=== PATIENT | female | born 1960 | race Caucasian/White ===

== ENCOUNTER 2018-07-12 11:54 | Emergency (ER) | payer SELFPAY ==
--- NOTE | 2018-07-12 13:07 | RAD ---
RIGHT SHOULDER 3 VIEWS: HISTORY: Pain. Injury. COMPARISON: None. FINDINGS: There are degenerative changes of the AC joint space. Glenohumeral joint space is preserved. No fra cture or dislocation. Sclerosis of the greater tuberosity suggesting degenerative change. Visualize d right ribs are intact. IMPRESSION: No fracture or dislocation. POS: [facility]
== END 2018-07-12 18:42 | disposition home or self-care (01) ==
LOC: ERS 11:54
DX: M25.511 Pain in right shoulder (principal); F31.9 Bipolar disorder, unspecified; F17.210 Nicotine dependence, cigarettes, uncomplicated

== ENCOUNTER 2019-06-20 02:41 | Inpatient (IN) | payer SELFPAY ==
[2019-06-20] MEDS ORDERED: Rocuronium Bromide 10 MG/ML (10ML VIAL) ONE (02:47)
[2019-06-20] MEDS ORDERED: Fentanyl 100 MCG/2 ML VIAL ONE (02:59)
[2019-06-20 03:15] LABS: BHCG - Serum Negative (NEGATIVE); Pregs Control Background? CLEAR/WHITE (CLR/WHITE); Pregs Control Bar Appear? YES (CONTROL BAR)
[2019-06-20] MEDS ORDERED: Activated Charcoal/Sorbitol 25 GM/120 ML TUBE ONE (03:18)
[2019-06-20 03:19] LABS: Hemoglobin 18.5 g/dL (12.0-16.0); Mean Corpuscular HGB CONC 35.4 g/dL (32.0-36.0); Mean Corpuscular Hemoglobin 32.3 pg (27.0-31.0); Mean Corpuscular Volume 91.3 fL (78.0-98.0); Mean Platelet Volume 9.4 fL (7.4-10.4); Platelet Count 245 thou/uL (130-400); Red Blood Cell (RBC) Count 5.73 mill/uL (4.20-5.40); White Blood Cell (WBC) Count 7.8 thou/uL (4.8-10.8)
[2019-06-20 03:27] LABS: Actual Bicarbonate (HCO3a) 18.4 mEq/L (22-28); Analyzer IN Cardio ER; Base Excess (BEa) -6.4 mEq/L (-2.0 to +3.0); Carboxyhemoglobin (COHb) 9.7 gm% (0.0-3.0); Hemoglobin (Hb) 16.1 g/dL (12.0-16.0); O2 Tension (PaO2) 182.1 mmHg (80.0-100.0); Potassium - ABG Lab 3.07 mmol/L (3.70-5.30); pH, Arterial 7.34 (7.35-7.45)
[2019-06-20 03:30] LABS: ALT (SGPT) 14 U/L (8-55); AST (SGOT) 23 U/L (5-34); Albumin 5.2 g/dL (3.5-5.0); Alcohol 206 mg/dL (Less than 10); Alkaline Phosphatase 96 U/L (40-150); Anion Gap 19 mmol/L (10-20); BUN (Urea Nitrogen) 8 mg/dL (9.8-20.1); Bilirubin, Total 0.5 mg/dL (0.2-1.2); Calc. Creatinine Clearance 0 mL/min (70-130); Calcium 9.8 mg/dL (7.8-10.44); Carbon Dioxide 21 mmol/L (22-29); Chloride 106 mmol/L (98-107); Estimated GFR-MDRD 86; Globulin 3.2 g/dL (2.4-3.5); Glucose 66 mg/dL (70-105); Potassium 3.5 mmol/L (3.5-5.1); Protein, Total 8.4 g/dL (6.0-8.3); Salicylate Less than 8.0 mg/dL (15.0-30.0); Sodium 142 mmol/L (136-145)
[2019-06-20 03:32] LABS: Band 2 % (5-11); Eosinophils 2 % (0-10); Lymphocytes 38 % (21-51); MDiff Complete? YES; Monocytes 8 % (0-10); Neutrophil 50 % (42-75); RBC Morphology Normal
[2019-06-20] MEDS ORDERED: Dextrose 50% Abboject 50 ML SYRINGE ONE (03:34)
[2019-06-20 03:36] LABS: Bacteria/HPF None Seen HPF (None Seen); Bilirubin Negative (Negative); Blood, Urine Trace (Negative); Clarity Clear (Clear); Glucose, Urine (Dipstick) Normal (Negative); Leukocyte Negative Leu/uL (Negative); Nitrite Negative (Negative); Protein, Urine (Dipstick) 30 mg/dL (Neg-Trace); RBC/HPF None Seen HPF (0-3); Squamous Epithelial None Seen HPF (0-3); Urobilinogen Normal mg/dL (Less than 2); WBC/HPF 0-3 HPF (0-3)
[2019-06-20 03:37] LABS: Amphetamine Not Detected (NotDetected); Barbiturates Screen Not Detected (NotDetected); Benzodiazepine Screen Not Detected (NotDetected); Cocaine Metabolite Screen Detected (NotDetected); Medtox Control Line Valid? VALID (VALID); Medtox Reader # READER 4; Methadone Not Detected (NotDetected); Methamphetamine Not Detected (NotDetected); Opiate Screen Not Detected (NotDetected); Oxycodone Screen Not Detected (NotDetected); Phencyclidine (PCP) Not Detected (NotDetected); THC/Cannabinoid Screen Not Detected (NotDetected); Tricyclic Screen Not Detected (NotDetected)
[2019-06-20] MEDS ORDERED: Ondansetron ODT 4 MG TAB PO PRN (03:46)
[2019-06-20] MEDS ORDERED: Acetaminophen 325 MG TAB PO PRN (03:46)
[2019-06-20] MEDS ORDERED: Ondansetron PF 4 MG/2 ML Vial IVP PRN (03:46)
[2019-06-20] MEDS ORDERED: Ventilator Sedation Protocol 1 EACH FS ONE (03:46)
[2019-06-20] MEDS ORDERED: Acetaminophen 650 MG Suppository PR PRN (03:46)
[2019-06-20] MEDS ORDERED: Propofol 1,000 MG/100 ML VIAL IV PRN (03:51)
[2019-06-20] MEDS ORDERED: Lorazepam 2 MG/ML VIAL SLOW IVP PRN (03:51)
[2019-06-20] MEDS ORDERED: DISCONTINUE PREVIOUS NARCOTIC PAIN MEDICATIONS AND BENZODIAZEPINES FS SCH (03:51)
[2019-06-20] MEDS ORDERED: Propofol BOLUS 1,000 MG/100 ML VIAL IV PRN (03:51)
[2019-06-20] MEDS ORDERED: Fentanyl BOLUS 250 ML IVPB PRN (03:51)
[2019-06-20] MEDS ORDERED: fentaNYL Citrate/PF 2,000 MCG in Sodium Chloride 0.9% 60 ML IV SCH (03:51)
[2019-06-20] MEDS ORDERED: Morphine 2 MG/ML SYRINGE SLOW IVP PRN (03:51)
[2019-06-20] MEDS ORDERED: WATER IV SCH ×2 (04:00→09:45)
[2019-06-20] MEDS ORDERED: DEXTROSE 5% IV SCH ×2 (04:00→09:45)
[2019-06-20] MEDS ORDERED: ACETYLCYSTEINE IV SCH ×2 (04:00→09:45)
[2019-06-20 04:40] LABS: Puncture Site LBA
[2019-06-20] MEDS: Sodium Chloride 0.9% 1,000 ML IV SCH ×3 (04:50→20:36)
[2019-06-20 05:00] VITALS: BMI 28.9
[2019-06-20] MEDS ORDERED: Acetylcysteine 20% (200mg/mL) 3,500 MG in Dextrose 5% in Water 500 ML IV SCH (05:00)
[2019-06-20 07:01] LABS: Actual Bicarbonate (HCO3a) 17.9 mEq/L (22-28); Base Excess (BEa) -7.6 mEq/L (-2.0 to +3.0); CO2 Tension 36.8 mmHg (35.0-45.0); Calcium, Ionized 1.12 mmol/L (1.12-1.30); Carboxyhemoglobin (COHb) 5.3 gm% (0.0-3.0); Hemoglobin (Hb) 15.3 g/dL (12.0-16.0); O2 Tension (PaO2) 123.1 mmHg (80.0-100.0); Potassium - ABG Lab 3.17 mmol/L (3.70-5.30); pH, Arterial 7.31 (7.35-7.45)
[2019-06-20 07:03] LABS: Puncture Site RB
--- NOTE | 2019-06-20 07:33 | HP ---
PRIMARY CARE DOCTOR: [facility]. CODE STATUS: Full code. TIME OF EVALUATION: 3:50 a.m. CHIEF COMPLAINT: Suicidal attempt with ingestion of Benadryl and Tylenol. HISTORY OF PRESENT ILLNESS: This is a 58-year-old male patient with no significant past medical history, came to the hospital after having suicidal attempt with ingestion of multiple Benadryl pills and Tylenol. The patient reportedly was also having some wine. The information has been gathered from the ER staff. The family is not available. The patient presented with altered mental status and was intubated for airway protection. The patient has been examined at bedside and symptoms have improved after intubation. The patient remains critical but stable. Symptoms were severe. We do not have enough information to know what happened and what was the reason for the ingestion. Poison Control has been called, and as of now has recommended charcoal administration. We will continue to monitor Tylenol level for further adjustment of the protocol. REVIEW OF SYSTEMS: Unable to obtain. The patient is sedated and intubated. PAST MEDICAL HISTORY: No past medical history. PAST SURGICAL HISTORY: Orthopedic surgery, right ear, left knee, right ankle, surgical history of tubal ligation and tonsillectomy. PSYCHIATRIC HISTORY: Bipolar disorder with history of suicidal ideations and suicidal attempts. SOCIAL HISTORY: The patient drinks socially, uses drugs. Former cocaine user. Smokes cigarettes, 1 pack per day. Lives at home. FAMILY HISTORY: Unable to obtain, patient is intubated and sedated. ALLERGIES: PENICILLINS AND CODEINE REPORTED. REPORTED MEDICATIONS: Unable to obtain. PHYSICAL EXAMINATION: VITAL SIGNS: On presentation, blood pressure 190/96 with heart rate 102, respiratory rate was 40, oxygen saturation was 95. GENERAL APPEARANCE: The patient is alert and oriented, in no acute distress. HEENT: Eyes, normal conjunctivae. Moist oral mucosa. Anicteric. No JVD. RESPIRATORY: Bilateral air entry. No rales. No wheezes. Symmetric expansion. CARDIOVASCULAR: Normal rate. Regular rhythm. No murmurs. No gallop. No edema. ABDOMEN: Soft. Normal bowel sounds. MUSCULOSKELETAL: Baseline range of motion and strength. SKIN: Warm and intact. No pallor. No rash. No redness. Capillary refill seems to be intact. NEURO: The patient is intubated, sedated, unable to fully explore. PSYCH: The patient presented with suicidal ideation, unable to fully explore as the patient is intubated. DIAGNOSTIC DATA: EKG was reviewed. The patient has normal sinus rhythm with a rate of 86 with OR 178, QRS 94, QT corrected 564, prolonged QT. Chest x-ray was reviewed. The patient has ET tube in the right position. Lungs were clear. Cardiovascular silhouette looks normal. No significant acute abnormalities. LABORATORY DATA: Labs were reviewed. The patient has white count of 7.9, hemoglobin 18.5, MCV 91.3, platelet count 245. Chemistry; sodium 142, potassium 3.5, chloride 106, carbon dioxide 21, anion gap 19, BUN 8, creatinine 0.7 GFR 86 , glucose 66, calcium 9.8, total bilirubin 0.5. LFTs were negative. Urine was done ,was negative. Toxicology was positive for acetaminophen of 178. Cocaine was positive and blood alcohol 206. ASSESSMENT AND PLAN: The patient will be placed in the hospital with the following medical problems; 1. Acute encephalopathy secondary to overdose with alcohol, also acetaminophen, and also cocaine was detected. The patient is intubated and sedated. We will monitor critical care. Acetylcysteine as per protocol,poison control contacted 2. Suicidal attempt with multiple Tylenol pill ingestion. The patient will need Psych evaluation after patient is extubated. 3. He has known history of multiple drug abuse. The patient was tested positive for cocaine. These will be handled after the patient is extubated. 4. Alcohol intoxication with alcohol of 206. 5. Deep venous thrombosis prophylaxis. Job ID: [id number] MTDD
--- NOTE | 2019-06-20 09:01 | RAD ---
CHEST 1 VIEW: Date: 06/20/19 HISTORY: Difficulty breathing. FINDINGS: Endotracheal tube and NG tubes have been placed in satisfactory location. Heart size is within normal limits. Patchy bilateral increased markings in the perihilar regions, evidence for some bilateral va scular congestion. No confluent pneumonia. IMPRESSION: Patchy perihilar parenchymal changes, nonspecific, probably related to vascular congestion. Continued short-term follow-up. Tubes in place. POS: [facility]
--- NOTE | 2019-06-20 09:14 | CON ---
DATE OF CONSULTATION: HISTORY OF PRESENT ILLNESS: She is a 59-year-old female, who apparently was depressed and yesterday took unknown quantity of Tylenol and Benadryl. She was intubated in the ER to protect her airways. Her Tylenol level was 105. She was started on Mucomyst. She has done this several times before. In fact, she was seen by GI 2 years ago for a similar problem. Apparently, she is referred to [facility]. She is sedated. I have stopped the sedation and she is more responsive and moves all 4 extremities. May probably somewhere down the line, try to wean and extubate her. PAST MEDICAL HISTORY: Pertinent for bipolar disorder, previous suicide attempts. PAST SURGICAL HISTORY: Previous surgeries including multiple orthopedic surgeries, left knee right ankle, tonsils, and tubal ligation. SOCIAL HISTORY: Apparently, previous drug abuser, a pack-a-day smoker. Alcohol was none. ALLERGIES: PENICILLIN, CODEINE. REVIEW OF SYSTEMS: Difficult to obtain. PHYSICAL EXAMINATION: VITAL SIGNS: Pulse 76, blood pressure 109/60, saturations 100%, respiratory rate 15. CHEST: Decreased breath sounds. No wheezing. CARDIAC: Normal S1 and S2. No gallops. ABDOMEN: No masses. NEUROLOGICALLY: Awake, responsive after sedation was withheld. LABORATORY DATA: PO2 is 123, pCO2 is 36 and glucose 161. White count 7000, H and H , platelet count is normal. ASSESSMENT: 1. Status post overdose on Tylenol and Benadryl on IV Mucomyst protocol. 2. Bipolar disorder. PLAN: We will try and wean and extubate. Supportive care, PT. She needs ongoing counseling. She probably needs psych inpatient care. We will follow. 45-minute critical time. Job ID: [id number]
[2019-06-20] MEDS: Famotidine/PF 20 mg/2ml Vial SLOW IVP SCH ×2 (09:56→20:30)
[2019-06-20] MEDS: Enoxaparin Sodium 40 MG/0.4 ML SYRINGE SC SCH (09:58)
[2019-06-20 10:46] VITALS: BP 144/97
[2019-06-20] MEDS ORDERED: DC Sedation Protocol FS ONE (12:12)
--- NOTE | 2019-06-20 22:18 | PDOC.EVN ---
Event Note - Event Note Event Note: Record reviewed. Patient examined. She is reporting episodes of anxiety. Otherwise she feels ok. Exam is generally unremarkable. BP is running high since she went off the sedation. PRN's ordered. Will avoid BZD's. for now. Will need to see [facility] before discharge.
[2019-06-21 01:37] LABS: ALT (SGPT) Less than 7 U/L (8-55); AST (SGOT) 15 U/L (5-34); Acetaminophen Less than 6.0 mcg/mL (10.0-30.0); Albumin 3.4 g/dL (3.5-5.0); Alkaline Phosphatase 70 U/L (40-150); Anion Gap 10 mmol/L (10-20); BUN (Urea Nitrogen) 7 mg/dL (9.8-20.1); Bilirubin, Total 0.3 mg/dL (0.2-1.2); Calc. Creatinine Clearance 113 mL/min (70-130); Calcium 8.2 mg/dL (7.8-10.44); Carbon Dioxide 21 mmol/L (22-29); Chloride 111 mmol/L (98-107); Estimated GFR-MDRD Greater than 90; Glucose 112 mg/dL (70-105); Potassium 3.2 mmol/L (3.5-5.1); Protein, Total 5.4 g/dL (6.0-8.3); Sodium 139 mmol/L (136-145)
[2019-06-21] MEDS: Sodium Chloride 0.9% 1,000 ML IV SCH ×3 (05:23→21:19)
[2019-06-21 06:10] LABS: Anion Gap 16 mmol/L (10-20); BUN (Urea Nitrogen) 5 mg/dL (9.8-20.1); Calc. Creatinine Clearance 103 mL/min (70-130); Calcium 8.3 mg/dL (7.8-10.44); Carbon Dioxide 16 mmol/L (22-29); Chloride 111 mmol/L (98-107); Estimated GFR-MDRD 89; Glucose 155 mg/dL (70-105); Potassium 3.7 mmol/L (3.5-5.1); Sodium 139 mmol/L (136-145)
[2019-06-21 06:16] LABS: #Eosinphils 0.1 thou/uL (0.0-0.7); #Lymphocytes 1.6 thou/uL (1.20-3.40); #Monocytes 0.5 thou/uL (0.11-0.59); #Neutrophils 6.3 thou/uL (1.40-6.50); %Basophils 0.3 % (0.0-1.0); %Monocytes 6.3 % (0.0-10.0); %Neutrophils 73.5 % (42.0-75.0); Hemoglobin 14.2 g/dL (12.0-16.0); Mean Corpuscular HGB CONC 34.2 g/dL (32.0-36.0); Mean Corpuscular Hemoglobin 30.8 pg (27.0-31.0); Mean Corpuscular Volume 90.2 fL (78.0-98.0); Mean Platelet Volume 8.6 fL (7.4-10.4); Platelet Count 176 thou/uL (130-400); RBC Distribution Width 13.8 % (11.5-14.5); RBC Morphology Normal; White Blood Cell (WBC) Count 8.6 thou/uL (4.8-10.8)
[2019-06-21] MEDS: Enoxaparin Sodium 40 MG/0.4 ML SYRINGE SC SCH (09:13)
[2019-06-21] MEDS: Famotidine/PF 20 mg/2ml Vial SLOW IVP SCH ×2 (09:14→21:13)
--- NOTE | 2019-06-21 09:39 | PRG ---
DATE OF SERVICE: 06/21/2019 SUBJECTIVE: This morning, she is awake, alert, responsive, no distress. No nausea. Awaiting [facility]. OBJECTIVE: VITAL SIGNS: Saturations are 94% on room air, temperature 98, blood pressure 130\73, respiratory rate 18. CHEST: No wheezing, crackles. CARDIAC: Normal S1, S2. No gallops. ABDOMEN: No masses. LABORATORY DATA: Tylenol level is less than 6. IMPRESSION: 1. Overdose on Tylenol, anticholinergics, improved. 2. Respiratory failure, resolved. 3. Bipolar depression. PLAN: [facility] will see her today. Further recommendation thereafter. Job ID: [id number] MTDD
--- NOTE | 2019-06-21 12:39 | PDOC.EVN ---
Event Note - Event Note Event Note: Seen/examined in ICU. Await MR input, note to follow.
--- NOTE | 2019-06-21 16:15 | PDOC.HOSPP ---
- Subjective Encounter Date: 06/21/19 Encounter Time: 16:00 Subjective: Late entry note, patient seen early this afternoon. Medically stabilizing, recommend MR evaluation. She has a history of care with [facility] in the past with Dr. Lara. Did well with trazodone for sleep in the past. Reports Geodon caused "cloudy thinking" so she discontinued it. Denies suicidal ideation. States she has been under a lot of stress but in general life has been manageable. She has skilled nursing plans and looks forward to relocating to [place]. Endorses partying with friends, does not recall taking medications. - Objective Vital Signs & Weight: Vital Signs (12 hours) Temp Pulse Ox 06/21/19 14:57 98.6 F 06/21/19 10:29 98.2 F 06/21/19 08:00 95 06/21/19 07:27 98.3 F Weight Weight 158 lb 1.143 oz Most Recent Monitor Data Heart Rate from ECG 102 NIBP 128/92 NIBP BP-Mean 104 Respiration from ECG 27 SpO2 93 I&O: 06/20/19 06/21/19 06/22/19 06:59 06:59 06:59 Intake Total 357.7 4996 Output Total 200 3400 Balance 157.7 1596 Result Diagrams: 06/21/19 05:20 06/21/19 05:20 ROS - Medication Medications: Active Medications Generic Name Dose Route Start Last Admin Trade Name Freq PRN Reason Stop Dose Admin Enoxaparin Sodium 40 mg 06/20/19 09:00 06/21/19 09:13 Lovenox SC 40 mg 0900 JU Administration Famotidine 20 mg 06/20/19 09:00 06/21/19 09:14 Pepcid SLOW IVP 20 mg BID JU Administration Sodium Chloride 1,000 mls @ 125 mls/hr 06/20/19 04:00 06/21/19 13:29 Normal Saline 0.9% IV 1,000 mls .Q8H JU Administration Ondansetron HCl 4 mg 06/20/19 03:46 06/20/19 09:54 Zofran IVP 4 mg Q6H PRN Administration Nausea/Vomiting Sodium Chloride 10 ml 06/20/19 21:00 06/21/19 09:14 Flush - Normal Saline IVF 10 ml Q12HR JU Administration - Exam NAD General - other findings: Slightly anxious ENT: moist mucosa Neck: supple Heart: RRR Respiratory: CTAB, wheezes Respiratory - other findings: occasional wheezes Gastrointestinal: soft, non-tender Extremities: no edema Skin: no rashes Neurological: no focal deficits Psychiatric: A&O x 3 Hosp A/P (1) Tobacco dependence Code(s): F17.200 - NICOTINE DEPENDENCE, UNSPECIFIED, UNCOMPLICATED Status: Acute (2) Bipolar 1 disorder Code(s): F31.9 - BIPOLAR DISORDER, UNSPECIFIED Status: Acute (3) Overdose on Tylenol Code(s): T39.1X1A - POISONING BY 4-AMINOPHENOL DERIVATIVES, ACCIDENTAL, INIT Status: Acute - Plan Medically cleared for discharge; tylenol level noted. Encourage tobacco cessation. Await [facility] evaluation.
[2019-06-22] MEDS ORDERED: guaiFENesin ER 600 MG TAB PO PRN (01:47)
[2019-06-22] MEDS: Sodium Chloride 0.9% 1,000 ML IV SCH (04:52)
[2019-06-22] MEDS: Famotidine/PF 20 mg/2ml Vial SLOW IVP SCH (09:15)
[2019-06-22] MEDS: Enoxaparin Sodium 40 MG/0.4 ML SYRINGE SC SCH (09:15)
--- NOTE | 2019-06-22 09:17 | PRG ---
DATE OF SERVICE: 06/22/2019 SUBJECTIVE: This morning, she is awake, alert, and responsive, in no distress. OBJECTIVE: VITAL SIGNS: Saturations are 98% on room air, respiratory rate 16, temperature 96, blood pressure 120/80. CHEST: No wheezing, crackles. CARDIAC: Normal S1, S2. No gallops. ABDOMEN: No masses. IMPRESSION: 1. Status post overdose Tylenol and Benadryl. 2. History of depression. PLAN: Pulmonary schwartz, she is stable enough to be discharged home. As per [facility], Pulmonary will follow at a distance. Job ID: [id number]
[2019-06-22 11:18] VITALS: TEMP 98.6
--- NOTE | 2019-06-22 14:49 | DIS ---
DATE OF ADMISSION: 06/20/2019 DATE OF DISCHARGE: 06/22/2019 PRIMARY CARE PHYSICIAN: Tram De Jesus. DISCHARGE DISPOSITION: [facility]. CHIEF COMPLAINT: Suicide attempt with ingestion of Benadryl and Tylenol. PRINCIPAL DIAGNOSIS ON ADMISSION: acute metabolic encephalopathy secondary to polysubstance overdose, including alcohol, acetaminophen, cocaine, and Benadryl. DISCHARGE DIAGNOSES: 1. Acute encephalopathy secondary to polysubstance overdose with alcohol, acetaminophen, cocaine, and Benadryl. 2. Decompensated bipolar disorder, with manic phase. 3. Tobacco dependence. 4. History of reactive airway disease secondary to tobacco use. HOSPITAL COURSE: Ms. Euceda is a 59-year-old female with a history of bipolar disorder, previously on medications and under the care of [facility]. She has in recent years been off medications, as she did not care for the side effects of several of her medicines. She presented to [facility], after ingestion of multiple tablets of acetaminophen as well as multiple tablets of Benadryl and Tylenol, as well as alcohol. Additionally, urine drug screen notable for cocaine positivity. The patient was initially intubated for airway protection, placed in the intensive care unit. Poison Control consulted on admission, charcoal administration performed, Tylenol level monitored/treated according to protocol. The following morning, the patient extubated, with interval improvement medically. Subsequently, cleared medically for discharge, [facility] consultation undertaken on 06/21/2019. [facility] findings notable for decompensated bi, recommendation for inpatient hospitalization. Unable to assess suicide scale, due to tangential speech and difficulty of the patient clearly answering questions. Referral subsequently made to [facility] with anticipated discharge to the same facility this morning. Medically, overnight, the patient has remained stable. Hemodynamically, stable. Tolerating a diet. History of tobacco dependence, uses ProAir HFA inhaler on occasion at home. I have added this to her medications for discharge as well. Laboratory assessment reviewed, reassuring, with Tylenol level less than 6 achieved on 06/21/2019. PHYSICAL EXAMINATION AT DISCHARGE: LUNGS: Clear to auscultation bilaterally, and occasional scattered wheeze, which clears with coughing. HEART: Regular, rate, rhythm. ABDOMEN: Soft, nontender, and nondistended. NEUROLOGIC: Affect is reactive, agitated, as her preference is not to proceed with involuntary commitment. MEDICATIONS AT DISCHARGE: Albuterol HFA 2 puffs q.4 hours hourly p.r.n. shortness of breath. Of note, the patient indicates she has previously tolerated trazodone well at night to promote sleep. DIET: Regular. ACTIVITY: As tolerated. Discontinue IV fluids, discontinue IV, transition when bed available. TIME SPENT: Time spent on discharge planning and the patient's care today, 40 minutes. Job ID: [id number]
[2019-06-22 15:01] LABS: Acetaminophen Less than 6.0 mcg/mL (10.0-30.0)
--- NOTE | 2019-06-25 13:33 | EKG ---
Test Reason : Blood Pressure : / mmHG Vent. Rate : 086 BPM Atrial Rate : 086 BPM P-R Int : 178 ms QRS Dur : 094 ms QT Int : 472 ms P-R-T Axes : 056 066 064 degrees QTc Int : 564 ms Normal sinus rhythm Possible Left atrial enlargement Septal infarct , age undetermined Prolonged QT Abnormal ECG Confirmed by ANT PAULSON DO ([id number]), story editor JOSE JEFFRIES ([id number]) on 06/25/2019 1:33:24 PM Referred By: Confirmed By:ANT PAULSON DO
== END 2019-06-22 17:07 | disposition short-term general hospital (02) | DRG 917 ==
LOC: ERS 02:41 → CCU 03:30 → IMCU/EMU 04:26
PROVIDERS: ADMIT Hospitalist; ATTEND Hospitalist
PROC: 5A1935Z Respiratory Ventilation, Less than 24 Consecutive Hours (ICD-10-PCS; principal; 2019-06-20)
PROC: 0BH17EZ Insertion of Endotracheal Airway into Trachea, Via Natural or Artificial Opening (ICD-10-PCS; 2019-06-20)
DX: T39.1X2A Poisoning by 4-Aminophenol derivatives, intentional self-harm, initial encounter (principal); G92 Toxic encephalopathy; J96.90 Respiratory failure, unspecified, unspecified whether with hypoxia or hypercapnia; F31.10 Bipolar disorder, current episode manic without psychotic features, unspecified; T45.0X2A Poisoning by antiallergic and antiemetic drugs, intentional self-harm, initial encounter; T40.5X2A Poisoning by cocaine, intentional self-harm, initial encounter; T51.0X2A Toxic effect of ethanol, intentional self-harm, initial encounter; J45.909 Unspecified asthma, uncomplicated; F17.208 Nicotine dependence, unspecified, with other nicotine-induced disorders
CPT/HCPCS: 36415; 36416; 71045; 80048; 80053; 80306; 80307; 81003; 81015; 82805; 84484; 84703; 85025; 93005; 93010; 94002; 94640; J0132; J1650; J2060; J2270; J2405; J2704; J3010; J7070; J7620; S0028